=== PATIENT | male | born 1980 | race Caucasian/White ===

== ENCOUNTER 2020-07-01 21:51 | Emergency (ER) | payer OTHER ==
[~2020-07-01] VITALS: Ht 172.7 cm; Wt 127.0 kg
[2020-07-01] MEDS ORDERED: CLONAZEPAM2 MG PO (22:31)
[2020-07-01] MEDS ORDERED: QUETIAPINE FUMA50 M1 PO (22:32)
[2020-07-01] MEDS ORDERED: ZOCOR 10 MG TAB10 M1 PO (22:32)
[2020-07-01] MEDS ORDERED: OMEPRAZOLE 20 M20 M1 PO (22:32)
[2020-07-01] MEDS ORDERED: METOPROLOL TAR100 MG PO (22:32)
[2020-07-01] MEDS ORDERED: PRINIVIL20 MG PO (22:33)
[2020-07-01] MEDS ORDERED: LEVOTHYROXINE50 MCG PO (22:33)
[2020-07-01 22:41] LABS: AMP/METHAMP POSITIVE (Negative); BARBITURATES Negative (Negative); BENZODIAZEPINES Negative (Negative); COCAINE Negative (Negative); METHADONE Negative (Negative); OPIATES Negative (Negative); PCP Negative (Negative)
[2020-07-01 22:55] LABS: ABSOLUTE NEUTROPHILS 7.2 thou/uL (1.4-8.2); EOSINOPHILS 2.5 % (0.0-3.0); HEMATOCRIT 41.4 % (42.0-52.0); HEMOGLOBIN 14.2 gm/dL (14.0-18.0); MCHC 34.2 g/dL (28.0-37.0); MCV 90.6 fL (80.0-100.0); MONOCYTES 9.8 % (1.0-8.0); PLATELET COUNT 271 thou/uL (150-400); POLYS 65.7 % (36.0-66.0); RBC 4.57 mil/uL (4.50-6.00); RDW 13.9 % (10.5-14.5)
[2020-07-01 23:13] LABS: ANION GAP 13 mmol/L (7-16); BUN 7 mg/dL (7-18); CALCIUM 9.2 mg/dL (8.5-10.1); CHLORIDE 103 mmol/L (98-107); CO2 23 mmol/L (21-32); CREATININE 1.1 mg/dL (0.7-1.3); GLUCOSE 103 mg/dL (74-106); POTASSIUM 3.2 mmol/L (3.5-5.1); SALICYLATE < 2.8 mg/dL (2.8-20.0); SODIUM 139 mmol/L (136-145)
[2020-07-02 02:06] VITALS: BP 122/98
== END 2020-07-02 02:00 | disposition home or self-care (01) ==
LOC: ER 21:51
PROVIDERS: Nurse Practitioner
DX: F98.8 Other specified behavioral and emotional disorders with onset usually occurring in childhood and adolescence (principal); F15.90 Other stimulant use, unspecified, uncomplicated; I10 Essential (primary) hypertension; F20.9 Schizophrenia, unspecified; F41.9 Anxiety disorder, unspecified; Z79.899 Other long term (current) drug therapy